=== PATIENT | female | born 1950 | race Caucasian/White ===

== ENCOUNTER 2016-09-19 15:13 | Outpatient (CLI) | payer MEDICARE, MEDICAID | END 2016-09-19 15:14 | disposition home or self-care (01) | DX: J44.9 Chronic obstructive pulmonary disease, unspecified (principal); J45.901 Unspecified asthma with (acute) exacerbation; J98.11 Atelectasis ==

== ENCOUNTER 2016-10-29 | Outpatient (CLI) | payer MEDICARE, MEDICAID | END 2016-10-29 16:30 | disposition home or self-care (01) | DX: Z86.79 Personal history of other diseases of the circulatory system (principal) ==

== ENCOUNTER 2016-11-19 11:02 | Outpatient (CLI) | payer MEDICARE, MEDICAID | END 2016-11-19 11:03 | disposition home or self-care (01) | DX: G47.33 Obstructive sleep apnea (adult) (pediatric) (principal); M25.511 Pain in right shoulder | CPT/HCPCS: 73030; 99205; G0463 ==

== ENCOUNTER 2016-11-19 12:12 | Outpatient (CLI) | payer MEDICARE, MEDICAID | END 2016-11-19 12:13 | disposition home or self-care (01) | DX: M25.511 Pain in right shoulder (principal) ==

== ENCOUNTER 2016-12-05 14:45 | Outpatient (CLI) | payer MEDICARE, MEDICAID | END 2016-12-05 15:00 | disposition home or self-care (01) | DX: R07.89 Other chest pain (principal) ==

== ENCOUNTER 2016-12-27 16:28 | Outpatient (CLI) | payer MEDICAID, MEDICARE | END 2016-12-27 16:29 | disposition home or self-care (01) | DX: R07.9 Chest pain, unspecified (principal); I10 Essential (primary) hypertension; E66.01 Morbid (severe) obesity due to excess calories; R01.1 Cardiac murmur, unspecified; Z87.891 Personal history of nicotine dependence ==

== ENCOUNTER 2016-12-31 18:40 | Outpatient (CLI) | payer MEDICARE, MEDICAID ==
[2016-12-31] MEDS ORDERED: IOPAMIDOL-300 100 ML VIAL IVP ONE (19:20)
== END 2016-12-31 18:41 | disposition home or self-care (01) ==
DX: R51 Headache (principal)
CPT/HCPCS: 70470; Q9967

== ENCOUNTER 2017-03-16 20:05 | Outpatient (CLI) | payer MEDICARE, MEDICAID | END 2017-03-16 20:06 | disposition EMS.NT | LOC: EMS 20:05 | PROVIDERS: ATTEND Surgery | DX: F41.9 Anxiety disorder, unspecified (principal) ==

== ENCOUNTER 2017-05-20 07:18 | Outpatient (CLI) | payer MEDICARE, MEDICAID | END 2017-05-20 07:19 | disposition critical access hospital (66) | LOC: EMS 07:18 | PROVIDERS: ATTEND Surgery | DX: R45.89 Other symptoms and signs involving emotional state (principal) | CPT/HCPCS: A0425; A0429 ==

== ENCOUNTER 2017-05-20 07:40 | Emergency (ER) | payer MEDICARE, MEDICAID ==
[2017-05-20 08:55] LABS: BILIRUBIN,URINE NEGATIVE (NEGATIVE)
[2017-05-20 09:09] LABS: UA w/ MICROSCOPIC CHARGE YES
[2017-05-20 09:10] LABS: UR CULTURE IF IND NOT INDICATED
--- NOTE | 2017-05-20 10:15 | ED Physician Documentation ---
History of Present Illness - Stated complaint Stated Complaint: PANIC ATTACK - Chief complaint Chief Complaint: MHE - Additonal information Additional information: hx from pt pt BIBA for severe anxiety and depression she is very upset about her daughter who has substance abuse problems and had her children taken away pt denies SI HI no fever cough NVD saw PMD for similar, did not want meds, tried [place] effect, sawe again, tried cymbalata but bad side effects so dced, has not been referred for counseling per pt Review of Systems Constitutional: denies: Fever, Chills Throat: denies: Sore throat Cardiac: denies: Chest pain / pressure Respiratory: denies: Dyspnea GI: denies: Abdominal Pain, Nausea, Vomiting Psychiatric: reports: Depressed, Anxiety. 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 - Present Medications Home Medications: Ambulatory Orders Medication Instructions Recorded Confirmed Fluticasone 110 Mcg [Flovent] 2 puffs INH BID 11/10/14 02/06/16 Naproxen Sodium [Naprelan] 500 mg PO DAILY 11/10/14 02/06/16 Oxybutynin [Ditropan] 0 mg ORAL BID 11/10/14 02/06/16 Topiramate [Topamax] 50 mg PO BID 11/10/14 05/20/17 Atorvastatin [Lipitor] 0 mg ORAL DAILY 02/06/16 05/20/17 Cetirizine [ZyrTEC] 10 mg PO DAILY 05/20/17 05/20/17 Melatonin 0.3 mg PO QPM PRN #10 tablet 05/20/17 Montelukast [Singulair] 10 mg PO DAILY 05/20/17 05/20/17 Ondansetron Odt [Zofran Odt] 05/20/17 Risperidone [Risperdal] 0.5 mg PO DAILY 05/20/17 05/20/17 diphenhydrAMINE [Benadryl] 12.5 mg PO HS PRN #10 capsule 05/20/17 - Allergies Allergies/Adverse Reactions: Allergies Allergy/AdvReac Type Severity Reaction Status Date / Time fluoxetine HCl * Allergy Unknown Verified 02/06/16 15:52 [From Prozac] latex Allergy Rash Verified 02/06/16 15:52 - Social History Does the pt smoke?: No Smoking Status: Never smoker Does the pt drink ETOH?: No Does the pt have substance abuse?: No - Immunizations Immunizations are current?: Yes PD ED PE NORMAL - Vitals Vital signs reviewed: Yes - General General: Other (tearful and anxious) - Neck Neck: Supple, no meningeal sign - Cardiac Cardiac: RRR - Respiratory Respiratory: No respiratory distress, Clear bilaterally - Abdomen Abdomen: Soft, Non tender - Derm Derm: Normal color - Extremities Extremities: No deformity - Neuro Neuro: Alert and oriented X 3 - Psych Psych: Other (anxious tearful denies SI HI) Results - Vitals Vitals: Vital Signs - 24 hr 05/20/17 05/20/17 05/20/17 07:40 10:19 12:03 Temperature 36.9 C 36.5 C 36.8 C Heart Rate 87 65 80 Respiratory 18 18 18 Rate Blood Pressure 179/90 H 121/66 138/66 H O2 Saturation 95 95 97 Oxygen O2 Source Room air - Labs Labs: Laboratory Tests 05/20/17 05/20/17 08:45 11:16 WBC 5.9 RBC 4.70 Hgb 14.2 Hct 43.0 MCV 91.5 MCH 30.2 MCHC 33.0 RDW 13.4 Plt Count 219 MPV 8.5 Neut # 3.2 Lymph # 1.9 [place] # 0.4 Eos # 0.3 Baso # 0.0 Absolute Nucleated RBC 0.00 Nucleated RBCs 0.1 Urine Color YELLOW Urine Clarity CLEAR Urine pH 6.0 Ur Specific [place] <=1.005 Urine Protein NEGATIVE Urine Glucose (UA) NEGATIVE Urine Ketones NEGATIVE Urine Occult Blood NEGATIVE Urine Nitrite NEGATIVE Urine Bilirubin NEGATIVE Urine Urobilinogen 0.2 (NORMAL) Ur Leukocyte Esterase SMALL H Urine RBC 0-5 Urine WBC 6-10 H Ur Squamous Epith Cells MOD Squamous H Urine Bacteria Few Ur Microscopic Review INDICATED Urine Culture Comments NOT INDICATED Urine Opiates Screen NEGATIVE Ur Oxycodone Screen NEGATIVE Urine Methadone Screen NEGATIVE Ur Propoxyphene Screen NEGATIVE Ur Barbiturates Screen NEGATIVE Ur Tricyclics Screen NEGATIVE Ur Phencyclidine Scrn NEGATIVE Ur Amphetamine Screen NEGATIVE U Methamphetamines Scrn NEGATIVE U Benzodiazepines Scrn NEGATIVE Urine Cocaine Screen NEGATIVE U Cannabinoids Screen NEGATIVE PD MEDICAL DECISION MAKING - ED course ED course: UA not a clean catch Departure - Departure Disposition: 01 Home, Self Care Clinical Impression: Anxiety Depression Qualifiers: Depression Type: unspecified Qualified Code(s): F32.9 - Major depressive disorder, single episode, unspecified Condition: Good Instructions: ED Depression, ED Stress React Follow-Up: Jocelin De La Torre ARNP [Primary Care Provider] - Prescriptions: diphenhydrAMINE [Benadryl] 12.5 mg PO HS PRN #10 capsule PRN Reason: sleep Melatonin 0.3 mg PO QPM PRN #10 tablet PRN Reason: sleep Comments: Since medications do not seem to work well for you, I think your would benefit from counseling. The social work associate has met with you and set you up with [facility] for counseling, made you an appointment with your PMD tomorrow, and also to provide you with ideas for things you can do to calm yourself when things start to get out of control You can always call the crisis line if symptoms are severe again Try benadryl and melatonin for sleep And please get your blood pressure rechecked - it was high today
[2017-05-20 11:31] LABS: BASOPHILS % (AUTO) 0.6 %; EOSINOPHILS # (AUTO) 0.3 10^3/uL (0.0-0.7); EOSINOPHILS % (AUTO) 4.9 %; HGB - HEMOGLOBIN 14.2 g/dL (12.0-16.0); LYMPHOCYTES # (AUTO) 1.9 10^3/uL (1.5-3.5); LYMPHOCYTES % (AUTO) 33.1 %; MEAN CORPUSCULAR HEMOGLOBIN 30.2 pg (27.0-31.0); MEAN CORPUSCULAR VOLUME 91.5 fL (81.0-99.0); MEAN PLATELET VOLUME 8.5 fL (7.9-10.8); MONOCYTES # (AUTO) 0.4 10^3/uL (0.0-1.0); MONOCYTES % (AUTO) 7.2 %; NEUTROPHILS # (AUTO) 3.2 10^3/uL (1.5-6.6); NEUTROPHILS % (AUTO) 54.2 %; NUCLEATED RED BLOOD CELLS AUTO 0.1 /100WBC; RED CELL DISTRIBUTION WIDTH 13.4 % (12.0-15.0); UNCORRECTED WHITE BLOOD COUNT 5.9 x10^3/uL; WHITE BLOOD COUNT 5.9 x10^3/uL (4.8-10.8)
[2017-05-20] MEDS ORDERED: ACETAMINOPHEN 325 MG TABLET PO STA (13:07)
[2017-05-20] MEDS ORDERED: ACETAMINOPHEN 325 MG TABLET PO ONE (13:25)
[2017-05-20 13:33] VITALS: BP 130/66
== END 2017-05-20 13:27 | disposition home or self-care (01) ==
LOC: EDUNIT# → ED 07:40
DX: F41.9 Anxiety disorder, unspecified (principal); F32.9 Major depressive disorder, single episode, unspecified
CPT/HCPCS: 36415; 80306; 81001; 85025; 99283; A9270; 81003; 87086

== ENCOUNTER 2017-08-04 10:34 | Outpatient (CLI) | payer MEDICARE, MEDICAID | END 2017-08-04 10:35 | disposition home or self-care (01) | LOC: SC 10:34 | PROVIDERS: ATTEND Internal Medicine Pulmonary Disease | DX: G47.33 Obstructive sleep apnea (adult) (pediatric) (principal) | CPT/HCPCS: 99213; G0463; 99212 ==

== ENCOUNTER 2017-10-25 23:16 | Outpatient (CLI) | payer MEDICARE, MEDICAID | END 2017-10-25 23:59 | disposition critical access hospital (66) | LOC: EMS 23:16 | PROVIDERS: ATTEND Surgery | DX: M54.9 Dorsalgia, unspecified (principal); R10.32 Left lower quadrant pain | CPT/HCPCS: A0425; A0429 ==

== ENCOUNTER 2017-10-25 23:33 | Emergency (ER) | payer MEDICARE, MEDICAID ==
--- NOTE | 2017-10-26 00:04 | ED Physician Documentation ---
History of Present Illness - Stated complaint Stated Complaint: L FLANK PAIN - Chief complaint Chief Complaint: Back Pain - History obtained from History obtained from: Patient, EMS - History of Present Illness Timing: How many hours ago (3) Pain level max: 8 Pain level now: 2 Improved by: nothing Worsened by: nothing - Additonal information Additional information: Patient is a 67-year-old female who states that she began to develop L flank, sharp, aching. Radiating to the L groin. Now improving. No dysuria, no vomiting , no diarrhea. No vaginal bleeding/discharge. Review of Systems Ten Systems: 10 systems reviewed and negative Constitutional: denies: Fever, Chills Nose: denies: Rhinorrhea / runny nose, Congestion Throat: denies: Sore throat Cardiac: denies: Chest pain / pressure Respiratory: denies: Cough GI: denies: Nausea, Vomiting, Diarrhea Skin: denies: Rash Musculoskeletal: denies: Neck pain, Back pain Neurologic: denies: Headache PD PAST MEDICAL HISTORY - Past Medical History Past Medical History: Yes Cardiovascular: Hypertension, Murmur Respiratory: Asthma, Shortness of breath, Sleep apnea, CPAP use Neuro: Headache/migraine Endocrine/Autoimmune: None Psych: Depression, Anxiety Musculoskeletal: Osteoarthritis, Fibromyalgia, Chronic back pain - Past Surgical History Past Surgical History: Yes General: Cholecystectomy 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 - Present Medications Home Medications: Ambulatory Orders Medication Instructions Recorded Confirmed Fluticasone 110 Mcg [Flovent] 2 puffs INH BID 11/10/14 02/06/16 Naproxen Sodium [Naprelan] 500 mg PO DAILY 11/10/14 02/06/16 Oxybutynin [Ditropan] 0 mg ORAL BID 11/10/14 02/06/16 Topiramate [Topamax] 50 mg PO BID 11/10/14 05/20/17 Atorvastatin [Lipitor] 0 mg ORAL DAILY 02/06/16 05/20/17 Cetirizine [ZyrTEC] 10 mg PO DAILY 05/20/17 05/20/17 Melatonin 0.3 mg PO QPM PRN #10 tablet 05/20/17 Montelukast [Singulair] 10 mg PO DAILY 05/20/17 05/20/17 Ondansetron Odt [Zofran Odt] 05/20/17 Risperidone [Risperdal] 0.5 mg PO DAILY 05/20/17 05/20/17 diphenhydrAMINE [Benadryl] 12.5 mg PO HS PRN #10 capsule 05/20/17 - Allergies Allergies/Adverse Reactions: Allergies Allergy/AdvReac Type Severity Reaction Status Date / Time fluoxetine HCl * Allergy Unknown Verified 10/25/17 23:37 [From Prozac] latex Allergy Rash Verified 10/25/17 23:37 - Social History Does the pt smoke?: No Smoking Status: Never smoker Does the pt drink ETOH?: No Does the pt have substance abuse?: No - Immunizations Immunizations are current?: Yes - POLST Patient has POLST: No PD ED PE NORMAL - Vitals Vital signs reviewed: Yes - General General: Alert and oriented X 3, No acute distress - HEENT HEENT: Moist mucous membranes - Neck Neck: Supple, no meningeal sign - Cardiac Cardiac: RRR, Strong equal pulses - Respiratory Respiratory: No respiratory distress, Clear bilaterally - Abdomen Abdomen: Soft, Non tender, Non distended - Back Back: No CVA TTP, No spinal TTP - Derm Derm: Warm and dry, No rash - Extremities Extremities: No edema, No calf tenderness / cord - Neuro Neuro: Alert and oriented X 3 - Psych Psych: Normal mood, Normal affect Results - Vitals Vitals: Vital Signs - 24 hr 10/25/17 23:34 Temperature 36.5 C Heart Rate 66 Respiratory 20 Rate Blood Pressure 140/88 H O2 Saturation 95 Oxygen O2 Source Room air - Labs Labs: Laboratory Tests 10/25/17 10/25/17 10/26/17 00:05 00:05 00:24 WBC 6.0 RBC 4.54 Hgb 13.7 Hct 41.2 MCV 90.8 MCH 30.3 MCHC 33.4 RDW 14.2 Plt Count 196 MPV 8.7 Neut # 3.5 Lymph # 1.7 [place] # 0.4 Eos # 0.4 Baso # 0.1 Absolute Nucleated RBC 0.00 Nucleated RBC % 0.0 Sodium 144 Potassium 3.5 Chloride 106 Carbon Dioxide 27 Anion Gap 11.0 BUN 17 Creatinine 0.8 Estimated GFR (MDRD) 72 L Glucose 102 H Calcium 9.4 Total Bilirubin 0.6 AST 15 ALT 14 Alkaline Phosphatase 86 Total Protein 6.8 Albumin 3.8 Globulin 3.0 Albumin/Globulin Ratio 1.3 Lipase 17 L Urine Color YELLOW Urine Clarity CLEAR Urine pH 6.0 Ur Specific [place] >=1.030 H Urine Protein NEGATIVE Urine Glucose (UA) NEGATIVE Urine Ketones NEGATIVE Urine Occult Blood MODERATE H Urine Nitrite NEGATIVE Urine Bilirubin NEGATIVE Urine Urobilinogen 0.2 (NORMAL) Ur Leukocyte Esterase NEGATIVE Urine RBC 6-10 H Urine WBC 0-3 Ur Squamous Epith Cells FEW Squamous Urine Bacteria None Seen Urine Mucus Few Strands Ur Microscopic Review INDICATED Urine Culture Comments NOT INDICATED - Rads (name of study) CT abd/pelvis Radiology: Prelim report reviewed, EMP read contemporaneously, See rad report ( A couple of small nonobstructing right renal stones. No left renal stones or evidence of obstructive uropathy. . Extensive colonic diverticulosis. Previous cholecystectomy. ) PD MEDICAL DECISION MAKING - ED course Complexity details: reviewed results, re-evaluated patient, considered differential, d/w patient ED course: Patient is a 67-year-old female who presents to the emergency department with left flank pain. History was consistent with a ureteral stone. She passed a small stone in her urinalysis. Likely this was the cause of her pain. No common infection. Will continue supportive care and follow-up with her doctor. Patient counseled regarding signs and symptoms for which I believe and urgent re-evaluation would be necessary. Patient with good understanding of and agreement to plan and is comfortable going home at this time This document was made in part using voice recognition software. While efforts are made to proofread this document, sound alike and grammatical errors may occur. Departure - Departure Disposition: 01 Home, Self Care Clinical Impression: Ureteral stone Condition: Good Instructions: ED Stone Renal Passed Follow-Up: your,doctor in 1 week [Other] Comments: You appear to have passed a small kidney stone tonight. Return if you worsen.
[2017-10-26 00:16] LABS: BASOPHILS # (AUTO) 0.1 10^3/uL (0.0-0.1); BASOPHILS % (AUTO) 1.1 %; EOSINOPHILS # (AUTO) 0.4 10^3/uL (0.0-0.7); EOSINOPHILS % (AUTO) 6.2 %; HGB - HEMOGLOBIN 13.7 g/dL (12.0-16.0); LYMPHOCYTES # (AUTO) 1.7 10^3/uL (1.5-3.5); LYMPHOCYTES % (AUTO) 28.9 %; MEAN CORPUSCULAR HEMOGLOBIN 30.3 pg (27.0-31.0); MEAN CORPUSCULAR HGB CONC 33.4 g/dL (32.0-36.0); MEAN CORPUSCULAR VOLUME 90.8 fL (81.0-99.0); MEAN PLATELET VOLUME 8.7 fL (7.9-10.8); MONOCYTES # (AUTO) 0.4 10^3/uL (0.0-1.0); NEUTROPHILS # (AUTO) 3.5 10^3/uL (1.5-6.6); NEUTROPHILS % (AUTO) 57.8 %; PLT - PLATELET COUNT 196 10^3/uL (130-450); RED BLOOD COUNT 4.54 10^6/uL (4.20-5.40); RED CELL DISTRIBUTION WIDTH 14.2 % (12.0-15.0)
[2017-10-26 00:24] LABS: ALBUMIN 3.8 g/dL (3.2-5.5); ALBUMIN/GLOBULIN RATIO 1.3 (1.0-2.2); BILIRUBIN,TOTAL 0.6 mg/dL (0.2-1.0); CALCIUM 9.4 mg/dL (8.5-10.3); CREATININE 0.8 mg/dL (0.4-1.0); TOTAL PROTEIN 6.8 g/dL (6.7-8.2)
[2017-10-26 00:38] LABS: BILIRUBIN,URINE NEGATIVE (NEGATIVE); GLUCOSE, URINE (UA) NEGATIVE (NEGATIVE); KETONES,URINE (UA) NEGATIVE (NEGATIVE); LEUKOCYTE ESTERASE, URINE NEGATIVE (NEGATIVE); NITRITE,URINE NEGATIVE (NEGATIVE); OCCULT BLOOD,URINE MODERATE (NEGATIVE); PROTEIN,URINE NEGATIVE (NEGATIVE); UROBILINOGEN,URINE 0.2 (NORMAL) E.U./dL (NORMAL)
--- NOTE | 2017-10-26 00:41 | CT Preliminary Report ---
Exam: CT ABDOMEN/PELVIS W/O IMPRESSION: 1. Couple of small nonobstructing right renal stones. 2. No left renal stones or evidence of obstructive uropathy. 3. Extensive colonic diverticulosis. 4. Previous cholecystectomy. [facility] SITE ID: [id number]
--- NOTE | 2017-10-26 00:47 | CT Report ---
EXAM: CT ABDOMEN AND PELVIS (CT KUB) EXAM DATE: 10/26/2017 12:25 AM. CLINICAL HISTORY: Left flank pain. COMPARISONS: 08/27/2016. TECHNIQUE: Routine axial helical CT imaging was performed through the abdomen and pelvis without IV c ontrast. Reconstructions: Coronal and sagittal. In accordance with CT protocol optimization, one or more of the following dose reduction techniques w ere utilized for this exam: automated exposure control, adjustment of mA and/or KV based on patient s ize, or use of iterative reconstructive technique. FINDINGS: Lung Bases: Mild atelectasis/scarring over the elevated right diaphragm. Right Kidney/Ureter: A couple of small nonobstructing stones measuring up to 3 mm. No ureteral stones , hydronephrosis, or hydroureter. No perinephric fat stranding. Left Kidney/Ureter: No stones, hydronephrosis, or hydroureter. No perinephric fat stranding. Incident al lower pole tiny hyperdense cyst. Other Solid Organs: Noncontrast images of the solid organs are grossly unremarkable with exception of scattered hepatic cysts. Gallbladder/Bile Ducts: Unremarkable post-cholecystectomy. Peritoneal Cavity: No free fluid, free air or kalia adenopathy. Bowel is grossly unremarkable with ex ception of extensive colonic diverticulosis. Pelvic Organs: No bladder stones or wall thickening. Noncontrast images of the visualized pelvic orga ns are unremarkable. Vasculature: Unremarkable. Other: None. IMPRESSION: 1. A couple of small nonobstructing right renal stones. 2. No left renal stones or evidence of obstructive uropathy. 3. Extensive colonic diverticulosis. 4. Previous cholecystectomy. [facility] Referring Provider Line: [phone] SITE ID: [id number]
[2017-10-26 00:52] LABS: CLARITY,URINE CLEAR (CLEAR)
[2017-10-26 00:53] LABS: BACTERIA,URINE None Seen /HPF (None Seen); MUCUS,URINE Few Strands; SQUAMOUS EPITHELIAL CELL,UR FEW Squamous (<= Few)
[2017-10-26 01:10] VITALS: BP 130/80
== END 2017-10-26 01:37 | disposition home or self-care (01) ==
LOC: EDUNIT# → ED 23:33
DX: N20.1 Calculus of ureter (principal); I10 Essential (primary) hypertension; Z96.659 Presence of unspecified artificial knee joint
CPT/HCPCS: 36415; 74176; 80053; 81001; 81003; 83690; 85025; 87086; 99283; 99284

== ENCOUNTER 2017-12-02 13:17 | Outpatient (CLI) | payer MEDICARE, MEDICAID | END 2017-12-02 13:18 | disposition home or self-care (01) | LOC: SC 13:17 | PROVIDERS: ATTEND Nurse Practitioner Family | DX: G47.33 Obstructive sleep apnea (adult) (pediatric) (principal) | CPT/HCPCS: 99214; G0463; 99212 ==

== ENCOUNTER 2018-01-15 08:24 | Outpatient (CLI) | payer MEDICARE, MEDICAID | END 2018-01-15 08:25 | LOC: LAB.N 08:24 | PROVIDERS: ATTEND Physician Assistant Medical | DX: E55.9 Vitamin D deficiency, unspecified (principal) | CPT/HCPCS: 36415; 82306 ==